=== PATIENT | male | born 1990 | race Caucasian/White ===

== ENCOUNTER 2018-12-27 18:29 | Emergency (ER) | payer OTHER ==
[2018-12-27 19:31] LABS: URINE BLOOD DIPSTICK NEGATIVE (NEGATIVE); URINE COLOR YELLOW; URINE GLUCOSE - DIPSTICK NEGATIVE (NEGATIVE); URINE KETONE NEGATIVE (NEGATIVE); URINE LEUK ESTERASE NEGATIVE (NEGATIVE); URINE NITRITE - DIPSTICK NEGATIVE (Negative); URINE PROTEIN - DIPSTICK NEGATIVE (NEG-TRACE)
[2018-12-27 19:35] LABS: URINE BILIRUBIN - DIPSTICK SMALL (NEGATIVE)
[2018-12-27 21:21] VITALS: BP 117/64
== END 2018-12-27 21:30 | DRG 443 ==
LOC: ED 18:29
DX: B15.9 Hepatitis A without hepatic coma (principal); B19.20 Unspecified viral hepatitis C without hepatic coma; R10.9 Unspecified abdominal pain